=== PATIENT | female | born 1975 | race African-American/Black ===

== ENCOUNTER → 2021-08-27 11:22 | Outpatient (BNVA) | payer MEDICAID, SELFPAY | PROVIDERS: PCP Internal Medicine; Referring Provider Internal Medicine; Visit Provider Surgery | DX: D17.21 Benign lipomatous neoplasm of skin and subcutaneous tissue of right arm (principal) | CPT/HCPCS: 99202 ==

== ENCOUNTER 2021-11-02 07:39 | Day surgery (SDC) | payer MEDICAID, SELFPAY ==
[2021-10-26 13:47] VITALS: BMI 31.3
[2021-11-02] VITALS (8 sets, daily range): BP systolic 102–134; BP diastolic 51–70; PULSE 58–82; RESP 16–18; TEMP 36.1–36.6; O2SAT 99–100
[2021-11-02 08:00] LABS: UPreg QC Valid YES; Urine Pregnancy NEGATIVE (NEGATIVE)
--- NOTE | 2021-11-02 08:01 | MHC.SHP ---
Pre-Procedural Eval Section A Date of Service: 11/02/21 Section B Chief Complaint: Lipoma of right axilla Details of Present Illness: Has had axillary mass for 7 months now with increasing size and discomfort Relevant Family History (Specify if Yes): No Relevant Social History: None Present Medications: see Short Stay Collaborative assessment Medical History: Significant History ( asthma) History of Previous Operations: No relevant previous surgery Allergies: Allergies Allergy/AdvReac Type Severity Reaction Status Date / Time No Known Allergies Allergy Verified 10/26/21 13:46 Review of Systems Sugical H&P ROS: Negative: Constitution, Cardiovascular, Respiratory, Neurological, Psychiatric, Hem-Onc, Allergic/Immunologic, Gastrointestinal, Genitourinary, Musculoskeletal, Integumentary, Endocrine and Eyes/Ears/Nose/Throat Exam Surgical H&P Exam: Normal: HEENT, Normal: Heart, Normal: Lungs, Normal: Extremities, Normal: Abdomen, Normal: Skin and Normal: Neurological Exam Comment: soft this mass in the right axilla about 4 cm in size Plan Diagnosis/Plan: Unchanged I have reviewed the history and physical and performed a pertinent physical examination on my patient. No changes have occurred unless specified.
--- NOTE | 2021-11-02 08:59 | HO.ANESPROP2 ---
[facility] Active Problems Active Problems: All Active Problems (Updated 11/02/21 @ 07:45 by Miriam Nielsen, RN) Lipoma of right axilla (Acute) Asthma (Acute) Past Medical History Medical History (Updated 11/02/21 @ 07:45 by Miriam Nielsen RN) Asthma Hx of sinusitis Lipoma of right axilla Family History Family history of problems with anesthesia: No Surgical History Surgical History H/O section History of removal of ovarian cyst History of Problems with Anesthesia: No Social History Social History Are you a primary inspector health care facilities to a significant other at home: No Do you presently have visiting nurse or other home services: No Are you DNR?: No Advance Directives: No Advance Directives Information Provided: No Advance Directives on File: No Recently lost weight without trying: No Eating poorly because of decreased appetite: No Nutrition Risks: No Nutritional Risk Meds Allergies Allergy/AdvReac Type Severity Reaction Status Date / Time No Known Allergies Allergy Verified 10/26/21 13:46 Home Medications Medication Instructions Recorded Confirmed Last Taken Type norethindrone 1 mg-ethinyl 1 tab DAILY 10/26/21 10/26/21 Unknown History estradiol 35 mcg tablet (Alyacen) Exam Exam Date and Time: November 02, 2021 0859 Height,Weight and Vital Signs: Height 5 ft 3 in Weight 80.286 kg Last Vital Signs Temp 97.3 F 11/02/21 07:59 Pulse 73 11/02/21 07:59 Resp 16 11/02/21 07:59 BP 134/70 11/02/21 07:59 Pulse Ox 99 11/02/21 07:59 Pertinent Lab Results Pertinent Lab Results: Laboratory Tests 11/02/21 07:50 Urine Test NEGATIVE Airway Mallampati Class: II TM Dist: >3cm Neck ROM: Full Assessment and Plan Assessment Anesthesia Assessment: Anesthesia Plan Discussed and Chart Reviewed Final Anesthetic Review Family History of Problems with Anesthesia: No History of Problems with Anesthesia: No NPO: Yes ASA Class: II Final Preanesthetic Review: No Changes in Pt Med Stat, Meds/Allgs Chart Reviewed, Consent Obtained/Reviewed and Anes Risks/Benef Reviewed Patient Risk: Low Procedure Risk: Low Anesthetic Plan Anesthetic Plan: GA Disposition: Standard PACU
[2021-11-02] MEDS: Lactated Ringers 1,000 ML 100 ML IVCONT (09:50)
--- NOTE | 2021-11-02 10:45 | W.PM.OPN ---
Operative Note Operative Note Date of Service: 11/02/21 Narrative: Preop diagnosis: Lipoma right axilla Postop diagnosis: The same Procedure: Excision of lipoma, right axilla under anesthesia Surgeon: Geovany Chaney MD The patient is a 46 year old female who was sent to the office because of a mass on the right axilla. She said that this been increasing in size and had been uncomfortable. This appeared to be a soft lipomatous mass, although with vague margins. She understood the technique of excision under anesthesia. She was aware of the risks, benefits, and alternatives. She was brought the operating room placed supine under general anesthesia via laryngeal mask airway with the right arm that exposed the right axilla. This area was prepped and draped. lidocaine 1% was used for local anesthesia. I made an incision on the skin overlying this mass using blade 15. This was carried down with electrocautery through the full-thickness of skin and part of subcutaneous fat until I realize what appeared to be lipomatous tissue. I sharply dissected this with electrocautery. The margins were not well defined in the planes were not clearly seen. I removed this area of what seemed to be lipomatous mass from the axilla and this measured about 4 cm x 3 cm in dimension. I irrigated the area of excision. I cauterized oozing areas. I observed for hemostasis. Once hemostasis was ensured, I reapposed the deep subcutaneous tissue with Dexon 3-0 interrupted sutures. skin closure was achieved with multiple nylon 3-0 interrupted sutures. Dressings were applied. I infiltrated the area with Marcaine 0.5% for postop analgesia.The procedure was completed. The patient tolerated procedure well. There were no complications noted. Initial and final counts of sponges and instruments were correct. Estimated blood loss was about 15 cc. The patient was extubated and transferred to the recovery room with stable vital signs.
[2021-11-02] MEDS: oxyCODONE HCl Immed Release 5 MG TABLET PO (11:06)
== END 2021-11-02 12:30 | disposition home or self-care (01) ==
PROVIDERS: Anesthesiology; PCP Internal Medicine; Visit Provider Surgery
PROC: (CPT 21552; principal; 2021-11-02 09:40)
DX: D17.21 Benign lipomatous neoplasm of skin and subcutaneous tissue of right arm (principal); J45.909 Unspecified asthma, uncomplicated
CPT/HCPCS: 21552; 81025; 88304; J0690; J1100; J2250; J2370; J2405; J2765; J3010

== ENCOUNTER → 2021-11-15 10:41 | Outpatient (BNVA) | payer MEDICAID, SELFPAY | PROVIDERS: PCP Internal Medicine; Referring Provider Internal Medicine; Visit Provider Surgery | DX: Z48.817 Encounter for surgical aftercare following surgery on the skin and subcutaneous tissue (principal); Z87.2 Personal history of diseases of the skin and subcutaneous tissue | CPT/HCPCS: 99212 ==

== ENCOUNTER 2023-12-29 19:45 | Outpatient (REF) | payer MEDICAID, SELFPAY ==
[2023-12-31 20:28] LABS: C. trachomatis RNA TMA NOT DETECTED (NOT DETECTED); Candida glabrata RNA NOT DETECTED (NOT DETECTED); Candida species RNA NOT DETECTED (NOT DETECTED); N. gonorrhoeae RNA TMA NOT DETECTED (NOT DETECTED); Trichomonas vaginalis RNA NOT DETECTED (NOT DETECTED)
== END 2023-12-29 19:46 | disposition home or self-care (01) ==
LOC: HO.HHCLNP 19:45
PROVIDERS: Visit Provider Emergency Medicine
DX: R39.9 Unspecified symptoms and signs involving the genitourinary system (principal)
CPT/HCPCS: 36415; 81513; 87086; 87481; 87491; 87591; 87661

== ENCOUNTER 2024-02-02 09:13 | Outpatient (REF) | payer MEDICAID, SELFPAY ==
[2024-02-02 14:53] LABS: MANUAL DIFF FLAG NO
[2024-02-02 14:59] LABS: Basophils Percent Auto 0.5 % (0-2); Eosinophils Absolute Auto 0.2 X10*3/uL (0.0-0.4); Eosinophils Percent Auto 3.6 % (0-4); Hematocrit 36.7 % (37.0-47.0); Hemoglobin 11.5 g/dl (12.0-16.0); Imm Gran Abs Auto 0.01 X10*3/uL (0.00-0.03); Imm Gran Pct Auto 0.2 % (0.0-0.4); Lymphocytes Absolute Auto 1.9 X10*3/uL (1.2-4.9); Lymphocytes Percent Auto 31.8 % (20-40); Mean Corpuscular HGB Conc 31.3 g/dl (31.0-35.0); Mean Corpuscular Hemoglobin 26.4 pg (27.0-33.0); Mean Corpuscular Volume 84.4 fL (80.0-98.0); Mean Platelet Volume 10.5 fL (9.4-12.3); Monocytes Absolute Auto 0.4 X10*3/uL (0.1-1.2); Monocytes Percent Auto 6.7 % (2-11); Neutrophils Absolute Auto 3.5 x10*3/uL (2.0-8.3); Neutrophils Percent Auto 57.2 % (45-73); Platelet Count 342 X10*3/uL (160-400); Red Blood Count 4.35 X10*6/uL (4.20-5.50); Red Cell Distribution Width 14.6 % (11.0-16.0); White Blood Count 6.1 X10*3/uL (4.8-10.8)
[2024-02-02 15:16] LABS: Alanine Aminotransferase 15 U/L (0-31); Albumin Level 4.3 g/dL (3.5-5.0); Alkaline Phosphatase 98 U/L (39-117); Anion Gap 12 (12-20); Aspartate Amino Transferase 20 U/L (5-31); Bilirubin Total 0.6 mg/dL (0.0-1.0); Blood Urea Nitrogen 13 mg/dL (9-16); Calcium 9.5 mg/dL (8.4-10.2); Carbon Dioxide 25 mmol/L (22-29); Chloride 106 mmol/L (96-108); Cholesterol 199 mg/dL (<200); Estimated Glomerular Filt Rate > 60; Glucose Random 82 mg/dL (60-115); HDL Cholesterol 49 mg/dL (>40); LDL Cholesterol Calculated 127 mg/dL (<100); Potassium 3.9 mmol/L (3.3-5.1); Sodium 139 mmol/L (135-145); Triglycerides 118 mg/dL (<150)
[2024-02-02 15:35] LABS: TSH reflex Free T4 1.52 uIU/mL (0.32-4.0)
[2024-02-03 05:33] LABS: HIV AB/AG Nonreactive (Nonreactive); HIV Num 1 0.05 S/CO (0.00-0.99)
[2024-02-03 12:44] LABS: HCV Log PCR <1.18 NOT DETECTED Log IU/mL (NOT DETECTED); HepC Viral Load <15 NOT DETECTED IU/mL (NOT DETECTED)
== END 2024-02-02 09:14 | disposition home or self-care (01) ==
LOC: HO.CHCLDS 09:13
PROVIDERS: Visit Provider Internal Medicine
DX: Z00.00 Encounter for general adult medical examination without abnormal findings (principal); Z11.4 Encounter for screening for human immunodeficiency virus [HIV]; F41.9 Anxiety disorder, unspecified; E66.9 Obesity, unspecified
CPT/HCPCS: 36415; 80053; 80061; 84443; 85025; 87389; 87522

== ENCOUNTER 2024-03-15 11:46 | Outpatient (REF) | payer MEDICAID, SELFPAY ==
[2024-03-15 14:26] LABS: MANUAL DIFF FLAG NO
[2024-03-15 14:36] LABS: Basophils Percent Auto 0.6 % (0-2); Eosinophils Absolute Auto 0.1 X10*3/uL (0.0-0.4); Eosinophils Percent Auto 2.6 % (0-4); Hematocrit 34.5 % (37.0-47.0); Hemoglobin 11.1 g/dl (12.0-16.0); Imm Gran Abs Auto 0.01 X10*3/uL (0.00-0.03); Imm Gran Pct Auto 0.2 % (0.0-0.4); Lymphocytes Absolute Auto 1.2 X10*3/uL (1.2-4.9); Mean Corpuscular HGB Conc 32.2 g/dl (31.0-35.0); Mean Corpuscular Hemoglobin 26.7 pg (27.0-33.0); Mean Corpuscular Volume 83.1 fL (80.0-98.0); Mean Platelet Volume 10.8 fL (9.4-12.3); Monocytes Absolute Auto 0.3 X10*3/uL (0.1-1.2); Monocytes Percent Auto 5.8 % (2-11); Neutrophils Absolute Auto 3.6 x10*3/uL (2.0-8.3); Neutrophils Percent Auto 67.8 % (45-73); Platelet Count 318 X10*3/uL (160-400); Red Blood Count 4.15 X10*6/uL (4.20-5.50); Red Cell Distribution Width 14.3 % (11.0-16.0); White Blood Count 5.4 X10*3/uL (4.8-10.8)
== END 2024-03-15 11:47 | disposition home or self-care (01) ==
LOC: HO.CHCLDS 11:46
PROVIDERS: Visit Provider Internal Medicine
DX: D50.9 Iron deficiency anemia, unspecified (principal)
CPT/HCPCS: 36415; 85025

== ENCOUNTER → 2024-04-06 08:03 | Outpatient (BNV) | payer MEDICAID, SELFPAY | PROVIDERS: PCP Internal Medicine; Referring Provider Internal Medicine; Visit Provider Internal Medicine Medical Oncology | DX: D50.9 Iron deficiency anemia, unspecified (principal) | CPT/HCPCS: 99204 ==

== ENCOUNTER 2024-06-18 08:33 | Outpatient (REF) | payer MEDICAID, SELFPAY ==
[2024-06-19 03:01] LABS: CT PCR NOT DETECTED (Not Detect.); NG PCR NOT DETECTED (Not Detect.)
[2024-06-19 14:40] LABS: Bacterial Vaginosis PCR POSITIVE (Negative); Candida Group PCR NOT DETECTED (Not Detect); Candida glab krusei PCR NOT DETECTED (Not Detect); Trichomonas vaginalis PCR NOT DETECTED (Not Detect)
[2024-06-23 08:48] LABS: HPV mRNA E6/E7 Not Detected (Not Detected)
== END 2024-06-18 08:34 | disposition home or self-care (01) ==
LOC: HO.LNP 08:33
PROVIDERS: PCP Internal Medicine; Visit Provider Advanced Practice Midwife
DX: Z01.419 Encounter for gynecological examination (general) (routine) without abnormal findings (principal); N92.0 Excessive and frequent menstruation with regular cycle
CPT/HCPCS: 0352U; 81025; 87491; 87591; 87624; 88175; 99386

== ENCOUNTER 2024-06-18 08:33 | Outpatient (AMB) | payer MEDICAID, SELFPAY ==
[2024-06-18 08:37] VITALS: BP 110/70; BMI 33.8
--- NOTE | 2024-06-18 08:37 | A.OFFVIS_ITS ---
Vital Signs 06/18/24 08:37 Height 5 ft 2 in Weight 185 lb BMI 33.8 BP 110/70 Intake Visit Reasons: heavy periods/Referral Machinery Cleaner Required: Yes Machinery Cleaner Language: Combatant Swimmer Services: Machinery Cleaner Present (in person) Machinery Cleaner Name: Bertha Srinivasa ROLDAN Information Interpreted: non-clinical & clinical Refuse Collector Supervisor: Refuse Collector Supervisor Present (Bertha ROLDAN) Accompanied by: Self / Same As Patient Allergies No Known Allergies Allergy (Verified 06/18/24 08:37) Is last menstrual period known: Yes Last menstrual period: 06/14/24 HPI Comments Details: Patient is referred here today for for heavy menstrual bleeding. Additionally her new patient annual exam will be completed today. History of regular cycles lasting 5 days heavy for 3. Seen by Hematology for anemia. Labs 04/06/2024-H&H is 11.8/37.0, TSH 1.52 on 02/02/2024. She tries to eat healthy and stays active with exercise. Currently is sexually active. She denies vaginal itching and irritation. STI screening offered; she accepts, declines blood work reports it was up-to-date recently with primary care. Denies family history of breast, ovarian or colon cancer. Last pap smear several years ago at [facility], negative, no records available today. Mammogram: Not up-to-date. [facility] Medical History (Updated 06/18/24 @ 09:11 by Elissa De La Rosa CNM) History of uterine fibroid Hx of sinusitis Lipoma of right axilla Asthma Surgical History (Updated 06/18/24 @ 08:52 by Elissa De La Rosa CNM) History of myomectomy History of removal of ovarian cyst H/O section Family History (Updated 06/18/24 @ 09:07 by Bertha Bernabe [facility]) Mother HTN (hypertension) Father Diabetes Heart attack Social History Household Members: Family and Children Are you a primary health care technician to a significant other at home: No Do you presently have visiting nurse or other home services: No Patient Tobacco Use Status: Never used Tobacco service: No Current occupational status: unemployed Female Reproductive History Menstrual Duration of menses: 3-5 days Date of last menstrual period: 06/14/24 control method: pills Total pregnancies: 3 Full term: 1 Number of Living Children: 1 Review of Systems Const All systems reviewed & are unremarkable except as noted in HPI and below Reports as per HPI Eyes Reports no additional complaints ENT Reports no additional complaints Card Reports no additional complaints Resp Reports no additional complaints GI Reports as per HPI and Reports no additional complaints Reports as per HPI Musc Reports no additional complaints Skin/Breast Reports as per HPI Neuro Reports no additional complaints Psych Reports no additional complaints Endo Reports no additional complaints Diaz/Lymph Reports no additional complaints Aller/Immun Reports no additional complaints Physical Exam Vital Signs: Last Vital Signs BP 110/70 06/18/24 08:37 BMI result Body Mass Index 33.8 Const General: cooperative, healthy appearing, no acute distress, well developed and alert Orientation/consciousness: patient oriented x3 HEENT Head: Yes normal to inspection Eyes General: appearance normal, both eyes and all related structures Neck Neck: Yes normal visual inspection Thyroid: Thyroid normal Chest Other: Pendulous Chest palpation & inspection: normal inspection of the chest and other (no puckering, dimpling, peau de orange, retraction, discharge, masses) Breast/axilla inspection: normal inspection of the breasts Breast/axilla palpation: normal palpation of the breasts Resp Effort & Inspection: normal respiratory effort GI Inspection: Yes normal to inspection Palpation (GI): Soft to palpation Rectal Exam - Female: deferred General: Yes bladder normal to palpation External Female Exam: normal external appearance and normal appearance of the urethra Speculum Exam - Vagina: normal appearance of the vagina, normal palpation, normal vaginal discharge and vaginal bleeding (Small amount of dark red blood) Speculum Exam - Cervix: normal appearance of the cervix and normal palpation Bimanual exam- vagina & uterus: normal bimanual exam, normal palpation, uterine size normal, bladder normal to palpation, normal palpation and non-tender Bimanual Exam- Adnexa, other: no masses OB/external & speculum: vaginal bleeding (Small amount of dark red blood) Skin General skin exam: no rashes or lesions noted Rashes: no rashes Neuro General: patient oriented x3 Cognition (Neuro): normal cognition Extrem General: Yes normal to inspection Psych Attitude: cooperative Thought process: Normal thought process present Results AMB Test Urine AMB Test Urine Negative Last Edit by YULI Blair on 06/18/24 08:45 Results Reviewed Results Reviewed: Laboratory Last Values [facility] Clinic Negative 06/18/24 08:44 Assessment & Plan Assessment & Plan (1) Abnormal uterine bleeding (AUB): Code(s): N93.9 - Abnormal uterine and vaginal bleeding, unspecified Category: Medical (2) Encounter for well woman exam with routine gynecological exam: Code(s): Z01.419 - Encounter for gynecological examination (general) (routine) without abnormal findings Category: Medical Plan Discussed: Current recommendations for pap smears per ASCCP guidelines. Breast awareness and periodic breast exams. Maintain a healthy lifestyle including a well balanced diet and routine exercise. Workup for heavy menstrual bleeding-pelvic ultrasound, Pap today, GC chlamydia and BV panel. Plan follow up in person for ultrasound results consider endometrial biopsy at next visit. Prep procedure planning reviewed advised ibuprofen with food and fluids 1 hour before the visit. Mammogram yearly, order placed. Sign a release of records to [facility] to include pathology, operative note, assistant tennis professional provider notes and other pertinent assistant tennis professional information. Patient verbalizes understanding and agrees to the plan of care. She was given opportunity to ask questions and all questions were answered to the best of my ability. RTO in one year for annual assistant tennis professional examination. This note is constructed using voice recognition software. While every effort has been made to ensure accuracy, director of hemophilia errors may have been included. Orders: Orders AMB HCG Urine Test Today Z32.02 - Encounter for test, result negative MM tomosynthesis screening BI Today Z12.31 - Encounter for screening mammogram for malignant neoplasm of breast US pelvic and transvaginal Today N93.9 - Abnormal uterine and vaginal bleeding, unspecified CT NG by PCR Today N93.9 - Abnormal uterine and vaginal bleeding, unspecified, Z01.419 - Encounter for gynecological examination (general) (routine) without abnormal findings Bacterial Vaginosis Panel Today N93.9 - Abnormal uterine and vaginal bleeding, unspecified, Z01.419 - Encounter for gynecological examination (general) (routine) without abnormal findings PAP + HPV E6/E7 rfx 18/45 Today N93.9 - Abnormal uterine and vaginal bleeding, unspecified, Z01.419 - Encounter for gynecological examination (general) (routine) without abnormal findings Coding Level of Care Code New Pt Prev Care 40-64y(97556) Diagnoses Abnormal uterine bleeding (AUB) N93.9 Encounter for well woman exam with routine gynecological exam Z01.419
== END 2024-06-18 09:08 | disposition home or self-care (01) ==
LOC: HO.HWS 08:33
PROVIDERS: PCP Internal Medicine; Visit Provider Advanced Practice Midwife
DX: N93.9 Abnormal uterine and vaginal bleeding, unspecified (principal); Z01.419 Encounter for gynecological examination (general) (routine) without abnormal findings; Z32.02 Encounter for pregnancy test, result negative
CPT/HCPCS: 99386

== ENCOUNTER 2024-06-24 13:51 | Outpatient (REF) | payer MEDICAID, SELFPAY | END 2024-06-24 13:52 | disposition home or self-care (01) | LOC: HO.US 13:51 | PROVIDERS: PCP Internal Medicine; Visit Provider Advanced Practice Midwife | DX: N93.9 Abnormal uterine and vaginal bleeding, unspecified (principal) | CPT/HCPCS: 76830; 76856 ==

== ENCOUNTER 2024-11-25 10:10 | Outpatient (AMB) | payer MEDICAID, SELFPAY ==
--- NOTE | 2024-11-25 10:13 | A.OFFVIS_ITS ---
Vital Signs 11/25/24 10:19 BP 112/70 Intake Visit Reasons: ultrasound follow up Insulation And Flooring Assembler Required: Yes Insulation And Flooring Assembler Language: Supervisor Carding Name: Candi [id number] Information Interpreted: non-clinical & clinical Leveler: Leveler Present Allergies No Known Allergies Allergy (Verified 11/25/24 10:14) Is last menstrual period known: Yes Last menstrual period: 10/29/24 HPI Comments Details: Patient is here today for a follow up pelvic ultrasound. History of myomectomy at [facility] at age 45. She reports her menses have been reduced since her last visit now heavy 1.5 days out of 3d. Medical records from [facility] requested in June have not arrived. [facility] Medical History Fibroid History of uterine fibroid Hx of sinusitis Lipoma of right axilla Asthma Surgical History History of myomectomy History of removal of ovarian cyst H/O section Family History Mother HTN (hypertension) Father Diabetes Heart attack Social History Household Members: Family and Children Are you a primary administrator health care facility to a significant other at home: No Do you presently have visiting nurse or other home services: No Patient Tobacco Use Status: Never used Tobacco service: No Current occupational status: unemployed Female Reproductive History Menstrual Date of last menstrual period: 10/29/24 Review of Systems Const All systems reviewed & are unremarkable except as noted in HPI and below Endo Reports no additional complaints Physical Exam Vital Signs: Last Vital Signs BP 112/70 11/25/24 10:19 Const General: cooperative, healthy appearing and no acute distress Psych Appearance: well kempt Attitude: cooperative Thought process: Normal thought process present Results Reviewed Results Reviewed: [address] [address] Ultrasound Report Signed Patient: Haley Mckeon MR#: [id number] : 1975 Acct:[id number] Age/Sex: 48 / F ADM Date: 06/24/24 Loc: HO.US Attending Dr: Elissa De La Rosa CNM Ordering Physician: Elissa De La Rosa CNM Date of Service: 06/24/24 Procedure(s): US pelvic and transvaginal Accession Number(s): [id number] cc: Jason Salas MD; Elissa De La Rosa CNM~ EXAMINATION: US PELVIS CLINICAL INFORMATION: Abnormal uterine and vaginal bleeding COMPARISON: None available. TECHNIQUE: Ultrasound of the pelvis is performed using both transabdominal and transvaginal transducers along with Doppler. Transvaginal imaging is performed due to inadequate visualization transabdominally. FINDINGS: Uterus: The uterus is anteverted is enlarged with multiple fibroids measuring 10.0 x 6.4 x 6.5 cm. Multiple fibroids are seen with the 4 largest ranging in size from 1.7 to 3.9 cm. At the time of the prior study, more discrete fibroids were seen but smaller in size ranging from under a centimeter up to 1.9 cm. The double wall endometrial thickness is 0.9 mm. Nabothian cysts are present in the cervix. Adnexa: The right ovary was not seen. The left ovary measures 4.1 x 2.2 x 2.9 cm for a volume of 13.7 cc and contains follicular cysts. No free pelvic fluid US/US pelvic and transvaginal IMPRESSION: Enlarged uterus with multiple fibroids increasing in size. Electronically signed by: Carlitos Blanchard MD 08/22/2024 11:00 PM [facility] Dictated By: Carlitos Blanchard MD Signed By: <Electronically signed by Carlitos Blanchard MD in OV> 08/22/24 2300 DD/ 1413 TD/TT: 06/24/24 1433 Reduction Plant Supervisor: SS Assessment & Plan Assessment & Plan (1) Fibroid: Code(s): D21.9 - Benign neoplasm of connective and other soft tissue, unspecified Category: Medical Plan: (2) Encounter to discuss test results: Code(s): Z71.2 - Person consulting for explanation of examination or test findings Plan: See ultrasound report. Plan Discussed ultrasound findings. Counseled re: Leiomyoma: common pelvic neoplasm. Differential diagnosis-may include but not limited to- leiomyosarcoma which is a rare uterine sarcoma 3- 7/100,000, difficult to distinguish from fibroids on ultrasound from uterine sarcoma's. Unlikely any single test will have a highly positive predictive value. Hysterectomy is not recommended for sole purpose of excluding malignant neoplasm. Consult for surgical exploration, medical treatment, other treatments, verses expectant management, pros and cons, risks and benefits. Expectant management follow up in 6 months, then yearly for stability. Patient prefers to proceed with expectant management. Report any AUB, pelvic pressure, bloating, or pain. Referral to MD if indicated for level of care if indicated. Follow up pending ultrasound results. Schedule annual exam. Menopause verses perimenopause. Menopause is definitive of 1 year of no menses or 12 months in succession. Report any abnormal uterine bleeding in example prolonged episodes, or short intervals less than 24 days. 2nd Release for medical records requested today. Orders: Orders US pelvic and transvaginal 12/06/24 D21.9 - Benign neoplasm of connective and other soft tissue, unspecified Coding Level of Care Code Est Pt Level 3 (22821) Diagnoses Fibroid D21.9 Encounter to discuss test results Z71.2
[2024-11-25 10:19] VITALS: BP 112/70
== END 2024-11-25 10:47 | disposition home or self-care (01) ==
LOC: HO.HWS 10:11
PROVIDERS: PCP Internal Medicine; Visit Provider Advanced Practice Midwife
DX: D21.9 Benign neoplasm of connective and other soft tissue, unspecified (principal); Z71.2 Person consulting for explanation of examination or test findings
CPT/HCPCS: 99213

== ENCOUNTER → 2024-11-25 10:10 | Outpatient (BNVA) | payer MEDICAID, SELFPAY | PROVIDERS: PCP Internal Medicine; Visit Provider Advanced Practice Midwife | DX: Z71.2 Person consulting for explanation of examination or test findings (principal); D21.9 Benign neoplasm of connective and other soft tissue, unspecified | CPT/HCPCS: 99212 ==

== ENCOUNTER 2024-12-17 13:20 | Outpatient (REF) | payer MEDICAID, SELFPAY ==
--- NOTE | ~2024-12-17 | US_ITS ---
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 TECHNIQUE: Transabdominal and endovaginal real-time 2D good-scale ultrasound was performed. FINDINGS: Uterus: The uterus is enlarged, measuring 12.1 x 7.0 x 7.3 cm. Myometrium has a normal echotexture. Multiple fibroids are noted including a left uterine body fibroid measuring 3.7 x 2.8 x 2.6 cm (previously 3.1 x 3.9 x 2.7 cm), a right anterior fibroid measuring 1.5 x 1.3 x 1.2 cm (previously 1.4 x 1.7 x 1.3 cm), a left anterior fibroid measuring 4.5 x 3.0 x 4.8 cm (previously 3.4 x 2.5 x 3.9 cm), a right fundal fibroid measuring 4.6 x 4.2 x 4.0 cm (previously 2.6 x 2.3 x 2.5 cm), and a superior fibroid measuring 4.9 x 3.7 x 3.6 cm which was not seen previously. Endometrium: The endometrial stripe measures 11 mm in thickness. There are nabothian cysts in the cervix. Right ovary: The right ovary measures 3.6 x 1.8 x 2.9 cm. The right ovary is normal in size and echotexture. Left ovary: The left ovary measures 3.7 x 1.4 x 2.0 cm. The left ovary is normal in size and echotexture. Pelvic fluid: none. US/US pelvic and transvaginal IMPRESSION: Fibroid uterus as described. Electronically signed by: Hugo Worrell MD 12/17/2024 02:40 PM EDT
--- OUTSIDE RECORDS SUMMARY | 2024-12-17 13:47 | XMS_ITS | Encounter Summary ---
Author Organization [employer] Address [address] [place] [address] Care Team Providers Care Bar Steward Name Role Phone Jason Salas MD Primary Care Provider [phone] Reason for Referral * Consultation (Routine) - Closed Specialty Diagnoses / Procedures Referred By Contfarzana oropeza Referred To Contact Hematology and Oncology Diagnoses Microcytic anemia Jason Salas MD [address] [place] [address] Phone: tel: fax: Ed Hugo MD [address] [place] [address] Phone: tel: fax: Referral ID Status Reason Start Date Expiration Date V isits Requested Visits Authorized [id number] Closed Specialty Services Required 03/15/2024 03/15/2025 1 1 Encounter Details Date Type Department Care Team (Late st Contact Info) Description 03/15/2024 Orders Only [facility] [address] [place], [place] [phone] Jason Salas MD [address], [place] [phone] Microcytic anemia (Primary Dx) Social History Tobacco Use Types Packs/Day Years Used Date Smoking Tobacco: Never Passive Smoke Exposure: Never Smokeless Tobacco: Never Depression Answer Date Recorded Patient Health Questionnaire-9 Score 7 03/15/2024 Patient Health Questionnaire-9 Score 7 03/15/2024 Last PHQ-9: Questionnaire Data Not on file 0 03/15/2024 Housing Stability Answer Date Recorded What is your housing situation today? Not on liberty e 07/07/[address] you li ve. Do you have problems with any of the following? None of the above 07/07/2023 Food Insecurity Answer Date Recorded Within the past 12 months, y ou worried that your food would run out before you got money to buy more: Never True 07/07/2023 Within the past 12 months,th e food you bought just didn't last and you didn't have enough money to get more: Never True 01/2023 Transportation Answer Date Recorded In the past 12 months, has l ack of transportation kept you from medical appts, meetings, work or from getting things needed for daily living? No 07/07/2023 Utilities Answer Date Recorded In the past 12 months, has t he electric, gas, oil or water company threatened to shut off services in your home? No 07/07/2023 Depression Answer Date Recorded Patient Health Questionnaire-2 Score 0 03/15/2024 Comments Unknown Sex and Gender Information Value Date Recorded Sex Assigned at Female 07/01/2022 10:34 AM EDT Legal Sex Female 10:34 AM EDT Gender Identity Female 01/16/2024 9:12 AM EDT Sexual Orientation Straight 01/16/2024 9: 12 AM EDT documented as of this encounter Plan of Treatment Upcoming Encounters Date Type Department Care Team (Late st Contact Info) Description 01/19/2025 10:00 AM EDT Office Visit [facility] [address] [place] [address] Jason Salas MD [address] [place] [address] Scheduled Referrals Name Type Priority Associated Diagnoses Order Schedule Referral to Hematology / Oncology Outpatient Referral Routine Microcytic anemia Expected: 03/15/2024 (Approximate), Expires: 03/15/2025 documented as of this encounter Visit Diagnoses Diagnosis Microcytic anemia- Primary Unspecified iron deficiency anemia documented in this encounter Additional Health Concerns Assessment Noted Time PHQ-9 Depression Total Score: 7 03/15/20 24 3:22 PM EDT documented as of this encounter Care Teams Bar Steward Relationship Specialty Start Date End Date Jason Salas MD [address] [place] [id number] PCP - General Internal Medicine 02/17/18 documented as of this encounter
--- OUTSIDE RECORDS SUMMARY | 2024-12-17 13:47 | XMS_ITS | Encounter Summary ---
Author Organization [employer] Address [address] [facility] [address] [place] [address] Care Team Providers Care Field Education Director Name Role Phone Jason Salas MD Primary Care Provider [phone] Encounter Details Date Type Department Care Team ([facility] st Contact Info) Description 09/07/2024 Orders Only [facility] MED & PEDS [address] [place], [place] [phone] Jason Salas MD [address] [place] [address] Class 1 obesity due to excess calories without serious comorbidity with body mass index (BMI) of 33.0 to 33.9 in adult (Primary Dx) Social History Tobacco Use Types Packs/Day Years Used Date Smoking Tobacco: Never Passive Smoke Exposure: Never Smokeless Tobacco: Never Depression Answer Date Recorded Patient Health Questionnaire-9 Score 4 06/28/2024 Patient Health Questionnaire-9 Score 4 06/28/2024 Last PHQ-9: Questionnaire Data Not on file 1 Housing Stability Answer Date Recorded What is your housing situation today? I have nelson le 06/07/[address] you li ve. Do you have problems with any of the following? None of the above 06/07/2024 Food Insecurity Answer Date Recorded Within the past 12 months, y ou worried that your food would run out before you got money to buy more: Never True 06/07/2024 Within the past 12 months,th e food you bought just didn't last and you didn't have enough money to get more: Never True 03/2024 Transportation Answer Date Recorded In the past 12 months, has l ack of transportation kept you from medical appts, meetings, work or from getting things needed for daily living? No 06/07/2024 Utilities Answer Date Recorded In the past 12 months, has t he electric, gas, oil or water company threatened to shut off services in your home? No 06/07/2024 Depression Answer Date Recorded Patient Health Questionnaire-2 Score 0 06/28/2024 Internet Access Answer Date Recorded Internet Access Q1 Yes 06/07/2024 Internet Access Q2 Not on file 06/07/2024 Comments Unknown Sex and Gender Information Value Date Recorded Sex Assigned at Female 07/01/2022 10:34 AM EDT Legal Sex Female 10:34 AM EDT Gender Identity Female 01/16/2024 9:12 AM EDT Sexual Orientation Straight 01/16/2024 9: 12 AM EDT documented as of this encounter Plan of Treatment Upcoming Encounters Date Type Department Care Team ([facility] st Contact Info) Description 01/19/2025 10:00 AM EDT Office Visit [facility] MED [facility] PEDS [address] [place] [address] Jason Salas MD [address] [place] [address] documented as of this encounter Visit Diagnoses Diagnosis Class 1 obesity due to excess calories without serious comorbidity with body mass index (BMI) of 33.0 to 33.9 in adult- Primary documented in this encounter Additional Health Concerns Assessment Noted Time PHQ-9 Depression Total Score: 4 06/28/20 24 2:46 PM EDT documented as of this encounter Care Teams Field Education Director Relationship Specialty Start Date End Date Jason Salas MD [address] [place] [address] PCP - General Internal Medicine 02/17/18 documented as of this encounter
--- OUTSIDE RECORDS SUMMARY | 2024-12-17 13:47 | XMS_ITS | Clinical Summary ---
Author Organization [employer] Address [address] [facility] [address] [place] [address] Care Team Providers Care Vibratory Pile Driver Name Role Phone Jason Salas MD Primary Care Provider [phone] Allergies No known active allergies Medications * This document contains information received from the source organization and may not represent a complete record from that organization. ferrous sulfate (Fe Tabs) 325 (65 Fe) MG EC tabletIndication s:Microcytic anemia Take 1 tablet (325 mg) by mouth with breakfast, with lunch, and with evening meal. Do not crush, chew, or split. 90 tablet 02/02/20 24 025 Active busPIRone (Buspar) 10 MG tabletIndication s:Anxiety Take 1 tablet (10 mg) by mouth 2 times daily. 60 tablet 11 02/03/20 24 025 Active Semaglutide-Weig ht Management (Wegovy) 0.5 MG/0.5ML solution auto-injectorInd ications:Class 1 obesity due to excess calories without serious comorbidity with body mass index (BMI) of 33.0 to 33.9 in adult INJECT ONE PEN (=0.5 MG) SUBCUTANEOUSLY ONCE A WEEK 2 mL 07/14/20 24 Active fluticasone (Flonase) 50 MCG/ACT nasal sprayIndications :Nasal sinus congestion INHALE 1 - 2 SPRAYS IN EACH NOSTRIL ONCE DAILY 48 g 08/11/20 24 Active Semaglutide-Weig ht Management (Wegovy) 1 MG/0.5ML solution auto-injector INJECT ONE PEN (=1 MG) SUBCUTANEOUSLY ONCE A WEEK 2 mL 08/10/20 24 Active Zepbound 2.5 MG/0.5ML solution auto-injectorInd ications:Class 1 obesity due to excess calories without serious comorbidity with body mass index (BMI) of 33.0 to 33.9 in adult INJECT 0.5ML'S (2.5MG'S) SUBCUTANEOUSLY ONCE PER WEEK 2 mL 1 10/28/19 25 Active albuterol (ProAir HFA) 108 (90 Base) MCG/ACT inhalerIndicatio ns:Mild intermittent asthma without complication Inhale 2 puffs every 6 (six) hours if needed for wheezing. 18 g 1 11/11/19 25 Active Active Problems Problem Noted Date Diagnosed Date Mild depression 03/15/2024 Assessment & Plan (03/15/2024 3:39 PM EDT): PROGRESS NOTE: ID: Haley is a 48 y.o. straight-identified cis-female with No previous hx of MH dx or sx No previous hx of MH services who presents for anxiety and depression. During IBH Consult Haley presenting with changes in sleep sleeping too much, change in appetite or weight overeating, fatigue/loss of energy and excessive worry/anxiety, difficulty controlling worry, restless/keyed up/On edge, easily fatigued, muscle tension, and sleep disturbance sleeping too much; for a period of 6-12 mo, for all symptoms in the context of employment concern, financial struggle, having too much time off. PLAN: New/Additional Services needed PCP management Behavioral Health Integration Plan External OP therapy referral Patient Self Plan Patient to utilize skills provided in intervention , Patient to [facility] to [facility] team as needed, Comply with medication , Patient to engage in OP therapy , and Patient to reach out to HC as needed Mild anxiety 03/15/2024 Mild intermittent asthma 12/29/2023 Acute gastroenteritis 01/20/2023 Assessment & Plan (01/20/2023 4:41 PM EDT): Advised hydration and BRAT diet. RTC PRN if symptoms fail to improve or worsen or are not resolved in a week. Gave Zofran for nausea. BRAT diet handout given to patient. Asthma 05/11/2019 Encounters Date Type Department Care Team Description 11/12/2024 Population Health Risk Score [facility] () Department [address] [phone] Provider, Population Health Generic 11/10/2024 Refill [facility] CHC MED & PEDS [address] [place] [address] Jason Salas MD Mild intermittent asthma without complication 10/28/2024 Refill [facility] CHC MED & PEDS [address] [place] [address] Jason Salas MD Class 1 obesity due to excess calories without serious comorbidity with body mass index (BMI) of 33.0 to 33.9 in adult from Last 3 Months Immunizations Name Administration Dates Next Due Pneumococcal Conjugate PCV 20 01/15/2024 Tdap 01/15/2024 Family History Medical History Relation Name Comments Diabetes type II Father Hypertension Father Diabetes Mother Hypertension Mother Relation Name Status Comments Father Mother Social History Tobacco Use Types Packs/Day Years Used Date Smoking Tobacco: Never Passive Smoke Exposure: Never Smokeless Tobacco: Never Tobacco Cessation:Counseling Given: Not Answered Depression Answer Date Recorded Patient Health Questionnaire-9 [...] Orientation Straight 01/16/2024 9: 12 AM EDT Last Filed Vital Signs Vital Sign Reading Time Taken Comments Blood Pressure 134/80 08/02/2024 3:29 PM EST Pulse 88 08/02/2024 3:29 PM EST Temperature 36.3 ??C (97.3 ??F) 08/02/2024 3:29 PM ES T Respiratory Rate 12 08/02/2024 3:29 PM EST Oxygen Saturation 100% 08/02/2024 3:29 PM EST Inhaled Oxygen Concentration - - Weight 83.6 kg (184 lb 3.2 oz) 08/02/2024 3:29 P M EST Height 161.3 cm (5' 3.5 ) 08/02/2024 3:29 PM EST Body Mass Index 32.12 08/02/2024 3:29 PM EST Plan of Treatment Upcoming Encounters Date Type Department Care Team (Late st Contact Info) Description 01/19/2025 10:00 AM EDT Office Visit [facility] CH[facility] MED & PEDS [address] [place] [address] Jason Salas MD [address] [place] [address] Health Maintenance Due Date Last Done Comments CT Colonography 1976 Colonoscopy 1976 FIT 1976 FOBT 1976 Sigmoidoscopy 1976 Family Planning (PISQ) 1991 Mammogram 2016 Influenza Vaccine (#1) 2025 Postp oned from 05/02/2024 (Patient Refused) SDOH Screening 06/07/2025 06/07/2024 Alcohol/Substance Use Screening 06/16/2025 06/16/2024 COVID-19 Vaccine (2023-2 5 season) 2025 02/23/2021, 01/26/2021 Postponed from 05/02/2024 (Patient Refused) Depression Screening 06/28/2025 06/28/2024, 06/28/2024 Tobacco Screening 08/02/2025 08/02/2024 Zoster Vaccines (1 of 2) 2026 Colorectal Cancer Screening 02/23/2027 FIT DNA/Cologuard 02/23/2027 02/24/2024 Lipid Panel 02/01/2029 02/02/2024 Cervical Cancer Screening 06/18/2029 HPV/Cotest 06/18/2029 06/18/2024, 12/14/2020 Pap Smear 06/18/2029 06/18/2024, 12/14/2020 DTaP/Tdap/Td Vaccines (2 - T d or Tdap) 01/14/2034 01/15/2024 RSV Patients and Patients Aged 60 years or older (1 - 1-dose 75+ series) 2051 Pneumococcal Vaccine: Pediatrics (0 to 5 Years) and At-Risk Patients (6 to 49) Years) Completed 01/15/2024 HIV Screening Completed 02/02/2024 Hepatitis C Screening Completed 02/02/2024 HIB Vaccines Aged Out No longer eligi ble based on patient's age to complete this topic HPV Vaccines Aged Out No longer eligi ble based on patient's age to complete this topic Hepatitis A Vaccines Aged Out No long er eligible based on patient's age to complete this topic Hepatitis B Vaccines Discontinued IPV Vaccines Aged Out No longer eligi ble based on patient's age to complete this topic Meningococcal Vaccine Aged Out No corine jennifer eligible based on patient's age to complete this topic RSV under 20 months Aged Out No longe r eligible based on patient's age to complete this topic Rotavirus Vaccines Aged Out No longer eligible based on patient's age to complete this topic Procedures Procedure Name Priority Date/Time Associated Diagnosis Comments THINPREP IMAGING PAP AND HPV MRNA E6/E7 WITH REFLEX TO HPV 16,18/45 Routine 06/18/2024 8:33 AM EDT LAB COLOGUARD?? COLON CANCER SCREEN Routine 02/24/2024 8:46 AM EDT Screening for colon cancer HIV 1/2 ANTIGEN/ANTIBODY, FOURTH GENERATION W/RFL Routine 02/02/2024 9:15 AM EDT Annual physical exam Anxiety LIPID PANEL, STANDARD Routine 02/02/2024 9:15 AM EDT Annual physical exam Anxiety HEPATITIS C VIRAL RNA, QUANTITATIVE, REAL-TIME PCR Routine 02/02/2024 9:01 AM EDT Annual physical exam Anxiety from Last 3 Months or Most Recently Relevant to Health Maintenance Results * ThinPrep Imaging Pap and HPV mRNA E6/E7 with Reflex to HPV 16,18/45 (06/18/2024 8:33 AM EDT) HPV 16 RNA [facility] HPV 18/45 RNA [facility] HPV nRNA E6/E7 Not Detected Not Detected [facility] Comment:Methodology: Transcr iption-Mediated AmplificationThis assay detects E6/E7 viral messenger RNA (mRNA) from 14high-risk HPV types (16,18,31,33,35,39,45,51,52,56,58,59,66,68).Cervical sources are required for HPV testing.If a vaginal source from a patient who has had atotal hysterectomy with removal of cervix wassubmitted, please contact the testing laboratoryfor alternative testing options.For additional information, please refer tohttp://education.[employer]/faq/QII479o2(This link if provided for information/educational purposes only.)THIS TEST WAS PERFORMED AT:[facility] [place] [phone] LYN MD SOURCE: SEE NOTE [facility] Comment:Cervix Report Status: [facility] Clinical Information: SEE NOTE [facility] Comment:ROUTINE LMP: SEE NOTE [facility] Comment:06/14/24 Prev. PAP: SEE NOTE [facility] Comment:NONE GIVEN Prev. BX: SEE NOTE [facility] Comment:NONE GIVEN Statement Of Adequacy: SEE NOTE [facility] Comment:Satisfactory for clare luation.Endocervical/transformation zone componentpresent. General Categorization: [facility] Interpretation/Result: SEE NOTE [facility] Comment:Cytology Results: Ne gative for intraepitheliallesion or malignancy. Cytology Comment SEE NOTE [facility] Comment:This Pap test has be en evaluated with computerassisted technology. Professional Athlete: SEE NOTE [facility] Comment:MSM, CT(ASCP)CT scre ening location: [place] [address] Review Professional Athlete: [facility] Pathologist [facility] PAP Infection [facility] See Note SEE NOTE [facility] Comment:EXPLANATORY NOTE:The Pap is a screening test for cervical cancer. It isnot a diagnostic test and is subject to false negativeand false positive results. It is most reliable when asatisfactory sample, regularly obtained, is submittedwith relevant clinical findings and history, and whenthe Pap result is evaluated along with historic andcurrent clinical information. 06/18/2024 8:33 AM EDT 06/18/2024 3:36 PM EDT Narrative [facility] - 06/23/2024 10:22 AM EDT SEE SCANNED RESULTS IN EMRWas previous PAP abnormal? NoClinical Information: routineCollection Date: 06/18/24igh risk HPV with 16 ?? 18 genotyping? YReflex HPV any abnormal diagnosis? YReflex HPV if ASCUS only? NHigh Risk HPV (any diagnosis)? YLMP: 06/14/24Date of previous PAP 2 yrs agoPerformed by: Elissa Montalvo: cervical us Generic External Data Provider LAB PATHOLOGY ORD ERABLES Final Result [facility] [address] [place] [address] [phone] * Cologuard?? colon cancer screening (02/24/2024 8:46 AM EDT) Cologuard Result Negative Negative 02/28/20 10:18 PM EDT [facility] (CLIA #:[id number]) Comment: NEGATIVE TEST RESULT. A negative Cologuard result indicates a low likelihood that a colorectal cancer (CRC) or advanced adenoma (adenomatous polyps with more advanced pre-malignant features) ??is present. The chance that a person with a negative Cologuard test has a colorectal cancer is less than 1 in 1500 (negative predictive value >99.9%) or has an ??advanced adenoma is less than ??5.3% (negative predictive value 94.7%). These data are based on a prospective cross-sectional study of 10,000 individuals at average risk for colorectal cancer who were screened with both Cologuard and colonoscopy. (Bonifacio Hicks et al, N Engl J Med 2014;370(14):1286- 1297) The normal value (reference range) for this assay is negative. COLOGUARD RE-SCREENING RECOMMENDATION: Periodic colorectal cancer screening is an important part of preventive healthcare for asymptomatic individuals at average risk for colorectal cancer. ??Following a negative Cologuard result, the [place] [employer] Society and U.S. Multi-Society Task Force screening guidelines recommend a Cologuard re-screening interval of 3 years. References: [place] [employer] Guideline for Colorectal Cancer Screening: https://www.cancer.org/cancer/ckevb-wvbhzc-lptyvs/xszilnnjc-ibcdrgnpx-dwkpzdb/ac s-rec ommendations.html.; Dale CHRISTENSEN, Samson GUADALUPE, Florencia JacoboK, Colorectal Cancer Screening: Recommendations for Physicians and Patients from the U.S. Multi-Society Task Force on Colorectal Cancer Screening , Am J Gastroenterology 2017; 112:9197-2880. TEST DESCRIPTION: Composite algorithmic analysis of stool DNA-biomarkers with hemoglobin immunoassay. ?? Quantitative values of individual biomarkers are not reportable and are not associated with individual biomarker result reference ranges. Cologuard is intended for colorectal cancer screening of adults of either sex, 45 years or older, who are at average-risk for colorectal cancer (CRC). Cologuard has been approved for use by the U.S. FDA. The performance of Cologuard was established in a cross sectional study of average-risk adults aged 50-84. Cologuard performance in patients ages 45 to 49 years was estimated by sub-group analysis of near-age groups. Colonoscopies performed for a positive result may find as the most clinically significant lesion: colorectal cancer [4.0%], advanced adenoma (including sessile serrated polyps greater than or equal to 1cm diameter) [20%] or non- advanced adenoma [31%]; or no colorectal neoplasia [45%]. These estimates are derived from a prospective cross-sectional screening study of 10,000 individuals at average risk for colorectal cancer who were screened with both Cologuard and colonoscopy. (Bonifacio Hicks et al, N Engl J Med 2014;370(14):1848-4907.) Cologuard may produce a false negative or false positive result (no colorectal cancer or precancerous polyp present at colonoscopy follow up). A negative Cologuard test result does not guarantee the absence of CRC or advanced adenoma (pre-cancer). The current Cologuard screening interval is every 3 years. ([place] [employer] Society and U.S. Multi-Society Task Force). Cologuard performance data in a 10,000 patient pivotal study using colonoscopy as the reference method can be accessed at the following location: www.[employer]/results. Additional description of the Cologuard test process, warnings and precautions can be found at www.LiquiGlideoguard.com. Stool specimen (specimen) 02/24/2024 8:46 AM EDT 02/25/2024 1:52 PM EDT us Jason Salas MD LAB MOLECULAR DIAGNOSTICS O RDERABLES Final Result [facility] (CLIA #:[id number]) [place] [address], * HIV-1/2 Antigen and Antibodies, Fourth Generation, with Reflexes (02/02/2024 9:15 AM EDT) HIV AB/AG Nonreactive Nonreactive [facility] Comment:HIV-1 p24 Ag and/or HIV-1/HIV-2 Ab not detected.A test result that is nonreactive does not exclude thepossibility of exposure to or infection with HIV-1 and/orHIV-2. Nonreactive results in this assay for individualswith prior exposure to HIV-1 and/or HIV-2 may be due toantigen and antibody levels that are below the limit ofdetection of this assay.The [employer] Alinity HIV Ag/Ab Combo assay result andsupplemental assay results should be interpreted inconjunction with the patient's clinical presentation,history and other laboratory results. If the results areinconsistent with clinical evidence, additional testing issuggested to confirm the result. Blood Venous blood specimen / Unknown 02/02/2024 9:15 AM EDT 02/02/2024 2:49 PM EDT us Jason Salas MD LAB BLOOD ORDERABLES Final Result [facility] [address] [place] [phone] * (ABNORMAL) Lipid Panel, Standard (02/02/2024 9:15 AM EDT) Triglycerides 118 <150 mg/dL [facility] Comment:Desirable Triglyceri de: less than 150 mg/dLBorderline High Triglyceride 150-199 mg/dLHigh Triglyceride: 200-499 mg/dLVery High Triglyceride: greater than or equal to 5OO mg/dL Cholesterol 199 <200 mg/dL [facility] Comment:Desirable Cholestero l: less than 200 mg/dLBorderline High Cholesterol: 200-239 mg/dLHigh Cholesterol: greater than 239 mg/dL LDL Cholesterol Calculated 127(H) <100 mg/dL [facility] Comment:Desirable LDL: less than 100 mg/dLNear Optimal/Above Optimal LDL: 110- 129 mg/dLBorderline High LDL: 130-159 mg/dLHigh LDL: 160-189 mg/dLVery High LDL: greater than or equal to 190 mg/dL HDL Cholesterol 49 >40 mg/dL [facility] Comment:Desirable HDL: great er than 40 mg/dL Note: This HDL assay may give artificially low results in patients with liver disease. Blood Venous blood specimen / Unknown 02/02/2024 9:15 AM EDT 02/02/2024 2:49 PM EDT us Jason Salas MD LAB BLOOD ORDERABLES Final Result Performing Organization Address [facility] Co de Phone Number [facility] [address] [place] [phone] * Hepatitis C Viral RNA, Quantitative, Real-Time PCR (02/02/2024 9:01 AM EDT) Hepatitis C Viral Load <15 NOT DETECTED NOT DETECTED IU/mL [facility] HCV Log PCR <1.18 NOT DETECTED NOT DETECTED Log IU/mL [facility] Comment:For more information on this test, go to:http://education.[employer]/faq/NQH29a8(This link is being provided for informational/educational purposes only.)THIS TEST WAS PERFORMED AT:[facility] [place] [phone] LYN MD Blood Venous blood specimen / Unknown 02/02/2024 9:01 AM EDT 02/02/2024 2:49 PM EDT us Jason Salas MD LAB BLOOD ORDERABLES Final Result Performing Organization Address [facility] Co de Phone Number [facility] [address] [place] [phone] from Last 3 Months or Most Recently Relevant to Health Maintenance Insurance [employer] Care Teams Vibratory Pile Driver Relationship Specialty Start Date End Date Jason Salas MD [address] [place] [address] PCP - General Internal Medicine 02/17/18
--- OUTSIDE RECORDS SUMMARY | 2024-12-17 13:47 | XMS_ITS | Encounter Summary ---
Author Organization [employer] Address [address] [facility] [address] [place] [address] Care Team Providers Care Parole Officer Name Role Phone Jason Salas MD Primary Care Provider [phone] Encounter Details Date Type Department Care Team ([facility] st Contact Info) Description 02/02/2024 Orders Only [facility] MED & PEDS [address] [place], [place] [phone] Jason Salas MD [address] [place], [place] [phone] Microcytic anemia (Primary Dx); Anxiety Social History Tobacco Use Types Packs/Day Years Used Date Smoking Tobacco: Never Smokeless Tobacco: Never Depression Answer Date Recorded Patient Health Questionnaire-9 Score 11 01/15/2024 Patient Health Questionnaire-9 Score 11 01/15/2024 Last PHQ-9: Questionnaire Data Not on file 0 01/15/2024 Housing Stability Answer Date Recorded What is [...] Answer Date Recorded Patient Health Questionnaire-2 Score 2 01/15/2024 Comments Unknown Sex and Gender Information Value Date Recorded Sex Assigned at Female 07/01/2022 10:34 AM EDT Legal Sex Female 10:34 AM EDT Gender Identity Female 01/16/2024 9:12 AM EDT Sexual Orientation Straight 01/16/2024 9: 12 AM EDT documented as of this encounter Plan of Treatment Upcoming Encounters Date Type Department Care Team ([facility] st Contact Info) Description 01/19/2025 10:00 AM EDT Office Visit [facility] MED & PEDS [address] [place] [address] Jason Salas MD [address] [place] [address] Scheduled Orders Name Type Priority Associated Diagnoses Orde r Schedule CBC auto differential Lab Routine Microcytic anemia Expected: 03/03/2024 (Approximate), Expires: 02/01/2025 documented as of this encounter Visit Diagnoses Diagnosis Microcytic anemia- Primary Unspecified iron deficiency anemia Anxiety Anxiety state, unspecified documented in this encounter Additional Health Concerns Assessment Noted Time PHQ-9 Depression Total Score: 11 024 2:13 PM EDT documented as of this encounter Care Teams Parole Officer Relationship Specialty Start Date End Date Jason Salas MD [address] [place] [address] PCP - General Internal Medicine 02/17/18 documented as of this encounter
== END 2024-12-17 13:21 | disposition home or self-care (01) ==
LOC: HO.US 13:20
PROVIDERS: PCP Internal Medicine; Visit Provider Advanced Practice Midwife
DX: D21.9 Benign neoplasm of connective and other soft tissue, unspecified (principal)
CPT/HCPCS: 76830; 76856

== ENCOUNTER → 2024-12-17 13:21 | Outpatient (BNV) | payer MEDICAID, SELFPAY | PROVIDERS: PCP Internal Medicine; Visit Provider Radiology Diagnostic Radiology | DX: D25.9 Leiomyoma of uterus, unspecified (principal) | CPT/HCPCS: 76830; 76856 ==

== ENCOUNTER 2025-01-26 15:04 | Outpatient (AMB) | payer MEDICAID, SELFPAY ==
--- NOTE | 2025-01-26 15:08 | A.OFFVIS_ITS ---
Intake Visit Reasons: US follow up Internal Medicine Hospitalist Required: Yes Internal Medicine Hospitalist Language: Artist Representative Name: Carli [id number] [id number] Propulsion Engineer: Propulsion Engineer Present Allergies No Known Allergies Allergy (Verified 01/26/25 15:14) Is last menstrual period known: Yes Last menstrual period: 01/20/25 HPI Comments Details: Patient is here today for a follow up pelvic ultrasound. History of multiple fibroids. Had a myomectomy at [facility] approximately 4 years ago, records have not arrived. She reports pelvic pressure, and mild cramping when she has her cycle. No heavy bleeding. No difficulties with urination or defecation. [facility] Medical History Fibroid History of uterine fibroid Hx of sinusitis Lipoma of right axilla Asthma Surgical History History of myomectomy History of removal of ovarian cyst H/O section Family History Mother HTN (hypertension) Father Diabetes Heart attack Social History Household Members: Family and Children Are you a primary rn intensive care unit to a significant other at home: No Do you presently have visiting nurse or other home services: No Patient Tobacco Use Status: Never used Tobacco service: No Current occupational status: unemployed Female Reproductive History Menstrual Date of last menstrual period: 01/20/25 Review of Systems Const All systems reviewed & are unremarkable except as noted in HPI and below Endo Reports no additional complaints Physical Exam Const General: cooperative, healthy appearing and no acute distress Psych Appearance: well kempt Attitude: cooperative Thought process: Normal thought process present Results Reviewed Results Reviewed: [address] [address] Ultrasound Report Signed Patient: Haley Mckeon MR#: [id number] : 1975 Acct:[id number] Age/Sex: 49 / F ADM Date: 12/17/24 Loc: HO.US Attending Dr: Elissa De La Rosa CNM Ordering Physician: Elissa De La Rosa CNM Date of Service: 12/17/24 Procedure(s): US pelvic and transvaginal Accession Number(s): [id number] cc: Jason Salas MD; Elissa De La Rosa CNM~ 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 TECHNIQUE: Transabdominal and endovaginal real-time 2D good-scale ultrasound was performed. FINDINGS: Uterus: The uterus is enlarged, measuring 12.1 x 7.0 x 7.3 cm. Myometrium has a normal echotexture. Multiple fibroids are noted including a left uterine body fibroid measuring 3.7 x 2.8 x 2.6 cm (previously 3.1 x 3.9 x 2.7 cm), a right anterior fibroid measuring 1.5 x 1.3 x 1.2 cm (previously 1.4 x 1.7 x 1.3 cm), a left anterior fibroid measuring 4.5 x 3.0 x 4.8 cm (previously 3.4 x 2.5 x 3.9 cm), a right fundal fibroid measuring 4.6 x 4.2 x 4.0 cm (previously 2.6 x 2.3 x 2.5 cm), and a superior fibroid measuring 4.9 x 3.7 x 3.6 cm which was not seen previously. Endometrium: The endometrial stripe measures 11 mm in thickness. There are nabothian cysts in the cervix. Right ovary: The right ovary measures 3.6 x 1.8 x 2.9 cm. The right ovary is normal in size and echotexture. Left ovary: The left ovary measures 3.7 x 1.4 x 2.0 cm. The left ovary is normal in size and echotexture. Pelvic fluid: none. US/US pelvic and transvaginal IMPRESSION: Fibroid uterus as described. Electronically signed by: Hugo Worrell MD 12/17/2024 02:40 PM EDT Dictated By: Hugo Worrell MD Signed By: <Electronically signed by Hugo Worrell MD in OV> 12/17/24 1440 DD/ 1347 TD/TT: 12/17/24 1415 Furnace Hand: Assessment & Plan Assessment & Plan (1) Uterine fibroid: Code(s): D25.9 - Leiomyoma of uterus, unspecified Category: Medical Qualifiers: Uterine leiomyoma location: unspecified location Qualified Code(s): D25.9 - Leiomyoma of uterus, unspecified Plan Counseled re: Leiomyoma: common pelvic neoplasm. Differential diagnosis-may i nclude but not limited to- leiomyosarcoma which is a rare uterine sarcoma 3- 7/100,000, difficult to distinguish from fibroids on ultrasound from uterine sarcoma's. Unlikely any single test will have a highly positive predictive value. Hysterectomy is not recommended for sole purpose of excluding malignant neoplasm. Consult for surgical exploration, medical treatment, other treatments, verses expectant management, pros and cons, risks and benefits. Due to the rapid progression of the fibroid plan MRI for further evaluation, referral to MD for further evaluation if indicated. Report any AUB, or pelvic pressure, bloating, pain changes. The patient expressed understanding and agreement with the plan of care. All of her questions and concerns were addressed to the best of my ability. Follow up in person for MRI results and further plan of care. Request for complete records to be sent over again. This note is constructed using voice recognition software. While every effort has been made to ensure accuracy, retail performance specialist errors may have been included. Orders: Orders MR pelvis wo/w con Today D25.9 - Leiomyoma of uterus, unspecified Coding Level of Care Code Est Pt Level 3 (03661) Diagnoses Uterine leiomyoma, unspecified location D25.9 Uterine leiomyoma location: unspecified location
--- OUTSIDE RECORDS SUMMARY | 2025-01-26 15:48 | XMS_ITS | Encounter Summary ---
Author Organization [employer] Address [address] [facility] 7t [place] [address] Care Team Providers Care Lan Manager Name Role Phone Jason Salas MD Primary Care Provider [phone] Encounter Details Date Type Department Care Team ([facility] st Contact Info) Description 09/07/2024 Orders Only [facility] CHC MED & PEDS [address] [place], [place] [phone] Jason Salas MD [address] [place] [address] Class 1 obesity due to excess calories [...] Care Team (Late st Contact Info) Description 04/21/2025 9:45 AM EDT Office Visit [facility] MED & PEDS [address] [place] [address] Jason Salas MD [address] [place] [address] documented as of this encounter Visit Diagnoses Diagnosis Class 1 obesity due to excess calories without serious comorbidity with body mass index (BMI) of 33.0 to 33.9 in adult- Primary documented in this encounter Additional Health Concerns Assessment Noted Time PHQ-9 Depression Total Score: 4 06/28/20 24 2:46 PM EDT documented as of this encounter Care Teams Lan Manager Relationship Specialty Start Date End Date Jason Salas MD [address] [place] [address] PCP - General Internal Medicine 02/17/18 documented as of this encounter
== END 2025-01-26 15:42 | disposition home or self-care (01) ==
LOC: HO.HWS 15:04
PROVIDERS: PCP Internal Medicine; Visit Provider Advanced Practice Midwife
DX: D25.9 Leiomyoma of uterus, unspecified (principal)
CPT/HCPCS: 99213

== ENCOUNTER → 2025-01-26 15:04 | Outpatient (BNVA) | payer MEDICAID, SELFPAY | PROVIDERS: PCP Internal Medicine; Visit Provider Advanced Practice Midwife | DX: D25.9 Leiomyoma of uterus, unspecified (principal) | CPT/HCPCS: 99212 ==

== ENCOUNTER 2025-02-07 15:52 | Outpatient (REF) | payer MEDICAID, SELFPAY ==
--- NOTE | ~2025-02-07 | MR_ITS ---
EXAMINATION: MR PELVIS WITHOUT THEN WITH IV CONTRAST HISTORY: D25.9 - Leiomyoma of uterus, unspecified. TECHNIQUE: Axial T1, fat-suppressed T1, and fat suppressed T2, and sagittal and coronal T2-weighted MR images of the pelvis were obtained. Subsequently, axial and sagittal fat-suppressed T1-weighted images were obtained after the intravenous administration of 7 mm Gadavist. COMPARISON: Correlation is made with a pelvic ultrasound dated 12/17/2024. FINDINGS: The uterus measures approximately 10.5 x 7.9 x 7.6 cm. Multiple fibroids are identified including an anterior fundal fibroid on the left measuring 3.3 x 3.0 x 2.9 cm, a submucosal fundal fibroid to the right of midline measuring 4.1 x 4.2 x 2.0 cm, a left uterine body fibroid measuring 1.7 x 1.8 x 2.0 cm, a posterior fibroid measuring 3.2 x 3.2 x 2.9 cm, an anterior submucosal fibroid measuring 3.8 x 4.0 x 3.5 cm, a posterior fibroid on the right measuring 1.6 x 1.3 x 1.2 cm, and an 8 mm anterior subserosal fibroid. The junctional zone is not thickened. There are nabothian cysts in the cervix measuring up to 1.4 cm in size. The cervix is otherwise unremarkable. The right ovary measures approximately 3.1 x 1.6 x 1.7 cm and is unremarkable. The left ovary measures approximately 2.1 x 1.6 x 2.0 cm and demonstrates multiple follicles. There is a small amount of free fluid on the left. There is no pelvic lymphadenopathy. The urinary bladder is partially collapsed. The visualized bones demonstrate normal marrow signal intensity. Incidental note is made of cysts within the liver measuring up to 2.1 cm in size. MR/MR pelvis wo/w con IMPRESSION: Fibroid uterus as described. Electronically signed by: Hugo Worrell MD 02/08/2025 07:20 AM EDT
[2025-02-07] MEDS: gadobutroL 7.5 ML VIAL IVPUSH (16:34)
--- OUTSIDE RECORDS SUMMARY | 2025-02-07 17:37 | XMS_ITS | Encounter Summary ---
Author Organization [employer] Address [address] [facility] 7[address] [place] [address] Care Team Providers Care Home Care And Home Health Aides Teacher Name Role Phone Jason Salas MD Primary Care Provider [phone] Encounter Details Date Type Department Care Team ([facility] st Contact Info) Description 09/07/2024 Orders Only [facility] CHC MED & PEDS [address] [place], [place] [phone] Jason Salas MD [address] [place] [address] Class 1 obesity due to excess calories [...] Description 04/21/2025 9:45 AM EDT Office Visit [facility] MED & PEDS [address] [place] [address] Jason Salas MD [address] [place] [address] documented as of this encounter Visit Diagnoses Diagnosis Class 1 obesity due to excess calories without serious comorbidity with body mass index (BMI) of 33.0 to 33.9 in adult- Primary documented in this encounter Additional Health Concerns Assessment Noted Time PHQ-9 Depression Total Score: 4 06/28/20 24 2:46 PM EDT documented as of this encounter Care Teams Home Care And Home Health Aides Teacher Relationship Specialty Start Date End Date Jason Salas MD [address] [place] [address] PCP - General Internal Medicine 02/17/18 documented as of this encounter
== END 2025-02-07 15:53 | disposition home or self-care (01) ==
LOC: HO.MRI 15:52
PROVIDERS: PCP Internal Medicine; Visit Provider Advanced Practice Midwife
DX: D25.9 Leiomyoma of uterus, unspecified (principal)
CPT/HCPCS: 72197; A9585

== ENCOUNTER → 2025-02-07 15:53 | Outpatient (BNV) | payer MEDICAID, SELFPAY | PROVIDERS: PCP Internal Medicine; Visit Provider Radiology Diagnostic Radiology | DX: D25.9 Leiomyoma of uterus, unspecified (principal) | CPT/HCPCS: 72197 ==

== ENCOUNTER 2025-02-08 08:23 | Outpatient (REF) | payer MEDICAID, SELFPAY ==
--- OUTSIDE RECORDS SUMMARY | 2025-02-08 08:35 | XMS_ITS | Encounter Summary ---
Author Organization [employer] Address [address] [facility] 7t [place] [address] Care Team Providers Care Rice Farmer Name Role Phone Jason Salas MD Primary Care Provider [phone] Encounter Details Date Type Department Care Team ([facility] st Contact Info) Description 09/07/2024 Orders Only [facility] CHC MED & PEDS [address] [place], [place] [phone] Jason Salas MD [address] [place] [address] Class 1 obesity due to excess calories [...] Description 04/21/2025 9:45 AM EDT Office Visit [facility] MED & PEDS [address] [place] [address] Jason Salas MD [address] [place] [address] documented as of this encounter Visit Diagnoses Diagnosis Class 1 obesity due to excess calories without serious comorbidity with body mass index (BMI) of 33.0 to 33.9 in adult- Primary documented in this encounter Additional Health Concerns Assessment Noted Time PHQ-9 Depression Total Score: 4 06/28/20 24 2:46 PM EDT documented as of this encounter Care Teams Rice Farmer Relationship Specialty Start Date End Date Jason Salas MD [address] [place] [address] PCP - General Internal Medicine 02/17/18 documented as of this encounter
== END 2025-02-08 08:24 | disposition home or self-care (01) ==
LOC: HO.MAMMO 08:23
PROVIDERS: PCP Internal Medicine; Visit Provider Internal Medicine
DX: Z12.31 Encounter for screening mammogram for malignant neoplasm of breast (principal)
CPT/HCPCS: 77063; 77067

== ENCOUNTER → 2025-02-08 08:30 | Outpatient (BNV) | payer MEDICAID, SELFPAY | PROVIDERS: PCP Internal Medicine; Visit Provider Internal Medicine | DX: Z12.31 Encounter for screening mammogram for malignant neoplasm of breast (principal) | CPT/HCPCS: 77063; 77067 ==

== ENCOUNTER 2025-02-17 10:01 | Outpatient (AMB) | payer MEDICAID, SELFPAY ==
--- NOTE | 2025-02-17 10:03 | A.OFFVIS_ITS ---
Intake Visit Reasons: MRI follow up Printing Worker Supervisor Required: Yes Printing Worker Supervisor Language: Manager Animal Services: Printing Worker Supervisor Present Printing Worker Supervisor Name: Bertha Information Interpreted: non-clinical & clinical Fire Hydrant Mechanic: Fire Hydrant Mechanic Present Allergies No Known Allergies Allergy (Verified 01/26/25 15:14) Is last menstrual period known: Yes HPI Comments Details: Patient is here today for a follow up MRI results. History of multiple fibroids. She reports pelvic pressure, menses are regular with heavy bleeding 2/3 days. History of myomectomy in 2020 at [facility], in hopes of , she does not want a future at this time. [facility] Medical History (Updated 01/26/25 @ 15:36 by Elissa De La Rosa CNM) Uterine fibroid Fibroid History of uterine fibroid Hx of sinusitis Lipoma of right axilla Asthma Surgical History History of myomectomy History of removal of ovarian cyst H/O section Family History Mother HTN (hypertension) Father Diabetes Heart attack Social History Household Members: Family and Children Are you a primary lead care manager to a significant other at home: No Do you presently have visiting nurse or other home services: No Patient Tobacco Use Status: Never used Tobacco service: No Current occupational status: unemployed Review of Systems Const All systems reviewed & are unremarkable except as noted in HPI and below Endo Reports no additional complaints Physical Exam Const General: cooperative, healthy appearing and no acute distress Psych Appearance: well kempt Attitude: cooperative Thought process: Normal thought process present Results Reviewed Results Reviewed: [address] [address] Magnetic Resonance Report Signed Patient: Haley Mckeon MR#: [id number] : 1975 Acct:[id number] Age/Sex: 49 / F ADM Date: 02/07/25 Loc: HO.MRI Attending Dr: Elissa De La Rosa CNM Ordering Physician: Elissa De La Rosa CNM Date of Service: 02/07/25 Procedure(s): MR pelvis wo/w con Accession Number(s): [id number] cc: Jason Salas MD; Elissa De La Rosa~ EXAMINATION: MR PELVIS WITHOUT THEN WITH IV CONTRAST HISTORY: D25.9 - Leiomyoma of uterus, unspecified. TECHNIQUE: Axial T1, fat-suppressed T1, and fat suppressed T2, and sagittal and coronal T2-weighted MR images of the pelvis were obtained. Subsequently, axial and sagittal fat-suppressed T1-weighted images were obtained after the intravenous administration of 7 mm Gadavist. COMPARISON: Correlation is made with a pelvic ultrasound dated 12/17/2024. FINDINGS: The uterus measures approximately 10.5 x 7.9 x 7.6 cm. Multiple fibroids are identified including an anterior fundal fibroid on the left measuring 3.3 x 3.0 x 2.9 cm, a submucosal fundal fibroid to the right of midline measuring 4.1 x 4.2 x 2.0 cm, a left uterine body fibroid measuring 1.7 x 1.8 x 2.0 cm, a posterior fibroid measuring 3.2 x 3.2 x 2.9 cm, an anterior submucosal fibroid measuring 3.8 x 4.0 x 3.5 cm, a posterior fibroid on the right measuring 1.6 x 1.3 x 1.2 cm, and an 8 mm anterior subserosal fibroid. The junctional zone is not thickened. There are nabothian cysts in the cervix measuring up to 1.4 cm in size. The cervix is otherwise unremarkable. The right ovary measures approximately 3.1 x 1.6 x 1.7 cm and is unremarkable. The left ovary measures approximately 2.1 x 1.6 x 2.0 cm and demonstrates multiple follicles. There is a small amount of free fluid on the left. There is no pelvic lymphadenopathy. The urinary bladder is partially collapsed. The visualized bones demonstrate normal marrow signal intensity. Incidental note is made of cysts within the liver measuring up to 2.1 cm in size. MR/MR pelvis wo/w con IMPRESSION: Fibroid uterus as described. Electronically signed by: Hugo Worrell MD 02/08/2025 07:20 AM EDT Dictated By: Hugo Worrell MD Signed By: <Electronically signed by Hugo Worrell MD in OV> 02/08/25 0720 DD/ 1614 TD/TT: 02/07/25 1634 Air Quality Consultant: Assessment & Plan Assessment & Plan (1) Uterine fibroid: Code(s): D25.9 - Leiomyoma of uterus, unspecified Category: Medical Qualifiers: Uterine leiomyoma location: unspecified location Qualified Code(s): D25.9 - Leiomyoma of uterus, unspecified Plan: Counseled re: Leiomyoma: common pelvic neoplasm. Differential diagnosis-may include but not limited to- leiomyosarcoma which is a rare uterine sarcoma 3- 7/100,000, difficult to distinguish from fibroids on ultrasound from uterine sarcoma's. Unlikely any single test will have a highly positive predictive value. Hysterectomy is not recommended for sole purpose of excluding malignant neoplasm. Consult for surgical exploration, medical treatment, other treatments, verses expectant management, pros and cons, risks and benefits. Expectant management follow up in 6 months, then yearly for stability. Desires referral for consultation for all options at [facility] including surgical, await follow up ultrasound based on decision making while at [facility] under their care. Referral placed today. Advised to monitor her cycles and report any heavy prolonged or closely spaced cycles. Informed of incidental findings of liver cyst patient inform needs to see her primary care for follow up, she reports she has a follow up within the next 2 months. Copy of MRI results to be faxed her primary care office today. Annual exam scheduled November 2025. The patient expressed understanding and agreement with the plan of care. All of her questions and concerns were addressed to the best of my ability. This note is constructed using voice recognition software. While every effort has been made to ensure accuracy, timber poisoner errors may have been included. (2) Pelvic pressure in female: Code(s): R10.2 - Pelvic and perineal pain Plan: As noted above follow up with referral provider. (3) Heavy menses: Code(s): N92.0 - Excessive and frequent menstruation with regular cycle Qualifiers: Menorrhagia type: with regular cycle Qualified Code(s): N92.0 - Excessive and frequent menstruation with regular cycle Plan: Monitor cycles report any abnormal patterns. Plan This note is constructed using voice recognition software. While every effort has been made to ensure accuracy, timber poisoner errors may have been included. Total time I personally spent on visit and management today: ?30 minutes. Time spent included review of pertinent office notes in the electronic health record; review of laboratory and imaging results; review of personal family medical history; performing physical exam; discussing diagnosis and plan of care with the patient; documenting the encounter in the EMR. Orders: Referrals JOURNEYMAN PAINTER Referral D25.9 - Leiomyoma of uterus, unspecified, N92.0 - Excessive and frequent menstruation with regular cycle, R10.2 - Pelvic and perineal pain Coding Level of Care Code Est Pt Level 3 (04066) Diagnoses Uterine leiomyoma, unspecified location D25.9 Uterine leiomyoma location: unspecified location Pelvic pressure in female R10.2 Menorrhagia with regular cycle N92.0 Menorrhagia type: with regular cycle
--- OUTSIDE RECORDS SUMMARY | 2025-02-17 11:11 | XMS_ITS | Encounter Summary ---
Author Organization [employer] Address [address] [facility] 7t [place] [address] Care Team Providers Care Radial Drill Operator Name Role Phone Jason Salas MD Primary Care Provider [phone] Encounter Details Date Type Department Care Team ([facility] st Contact Info) Description 09/07/2024 Orders Only [facility] CHC MED & PEDS [address] [place], [place] [phone] Jason Salas MD [address] [place] [address] Class 1 obesity due to excess calories [...] Description 04/21/2025 9:45 AM EDT Office Visit [facility] MED & PEDS [address] [place] [address] Jason Salas MD [address] [place] [address] documented as of this encounter Visit Diagnoses Diagnosis Class 1 obesity due to excess calories without serious comorbidity with body mass index (BMI) of 33.0 to 33.9 in adult- Primary documented in this encounter Additional Health Concerns Assessment Noted Time PHQ-9 Depression Total Score: 4 06/28/20 24 2:46 PM EDT documented as of this encounter Care Teams Radial Drill Operator Relationship Specialty Start Date End Date Jason Salas MD [address] [place] [address] PCP - General Internal Medicine 02/17/18 documented as of this encounter
== END 2025-02-17 11:23 | disposition home or self-care (01) ==
LOC: HO.HWS 10:01
PROVIDERS: PCP Internal Medicine; Visit Provider Advanced Practice Midwife
DX: D25.9 Leiomyoma of uterus, unspecified (principal); R10.2 Pelvic and perineal pain; N92.0 Excessive and frequent menstruation with regular cycle
CPT/HCPCS: 99213

== ENCOUNTER → 2025-02-17 10:01 | Outpatient (BNVA) | payer MEDICAID, SELFPAY | PROVIDERS: PCP Internal Medicine; Visit Provider Advanced Practice Midwife | DX: R10.2 Pelvic and perineal pain (principal); D25.9 Leiomyoma of uterus, unspecified; N92.0 Excessive and frequent menstruation with regular cycle | CPT/HCPCS: 99212 ==

== ENCOUNTER 2025-02-25 10:54 | Outpatient (REF) | payer MEDICAID, SELFPAY ==
--- OUTSIDE RECORDS SUMMARY | 2025-02-25 12:02 | XMS_ITS | Encounter Summary ---
Author Organization [employer] Address [address] [facility] [address] [place] [address] Care Team Providers Care Putty Patcher Name Role Phone Jason Salas MD Primary Care Provider [phone] Encounter Details Date Type Department Care Team ([facility] st Contact Info) Description 09/07/2024 Orders Only [facility] CHC MED & PEDS [address] [place], [place] [phone] Jason Salas MD [address] [place] [address] Class 1 obesity due to excess calories [...] Description 04/21/2025 9:45 AM EDT Office Visit [facility] MED & PEDS [address] [place] [address] Jason Salas MD [address] [place] [address] documented as of this encounter Visit Diagnoses Diagnosis Class 1 obesity due to excess calories without serious comorbidity with body mass index (BMI) of 33.0 to 33.9 in adult- Primary documented in this encounter Additional Health Concerns Assessment Noted Time PHQ-9 Depression Total Score: 4 06/28/20 24 2:46 PM EDT documented as of this encounter Care Teams Putty Patcher Relationship Specialty Start Date End Date Jason Salas MD [address] [place] [address] PCP - General Internal Medicine 02/17/18 documented as of this encounter
[2025-02-25 14:09] LABS: MANUAL DIFF FLAG NO
[2025-02-25 14:19] LABS: Basophils Percent Auto 0.6 % (0-2); Eosinophils Absolute Auto 0.3 X10*3/uL (0.0-0.4); Eosinophils Percent Auto 5.1 % (0-4); Hematocrit 38.5 % (37.0-47.0); Hemoglobin 12.4 g/dl (12.0-16.0); Imm Gran Abs Auto 0.01 X10*3/uL (0.00-0.03); Imm Gran Pct Auto 0.2 % (0.0-0.4); Lymphocytes Absolute Auto 1.6 X10*3/uL (1.2-4.9); Lymphocytes Percent Auto 30.1 % (20-40); Mean Corpuscular HGB Conc 32.2 g/dl (31.0-35.0); Mean Corpuscular Hemoglobin 28.4 pg (27.0-33.0); Mean Corpuscular Volume 88.3 fL (80.0-98.0); Mean Platelet Volume 10.3 fL (9.4-12.3); Monocytes Absolute Auto 0.4 X10*3/uL (0.1-1.2); Monocytes Percent Auto 7.7 % (2-11); Neutrophils Percent Auto 56.3 % (45-73); Platelet Count 318 X10*3/uL (160-400); Red Blood Count 4.36 X10*6/uL (4.20-5.50); Red Cell Distribution Width 13.6 % (11.0-16.0); White Blood Count 5.3 X10*3/uL (4.8-10.8)
[2025-02-25 14:30] LABS: Alanine Aminotransferase 16 U/L (0-31); Albumin Level 4.5 g/dL (3.5-5.0); Alkaline Phosphatase 94 U/L (39-117); Anion Gap 13 (12-20); Aspartate Amino Transferase 25 U/L (5-31); Bilirubin Total 0.4 mg/dL (0.0-1.0); Blood Urea Nitrogen 10 mg/dL (9-16); Calcium 9.5 mg/dL (8.4-10.2); Carbon Dioxide 24 mmol/L (22-29); Chloride 105 mmol/L (96-108); Cholesterol 173 mg/dL (<200); Estimated Glomerular Filt Rate > 60; Glucose Random 92 mg/dL (60-115); HDL Cholesterol 44 mg/dL (>40); LDL Cholesterol Calculated 107 mg/dL (<100); Potassium 4.2 mmol/L (3.3-5.1); Sodium 138 mmol/L (135-145); Total Protein 7.9 g/dL (6.5-8.0); Triglycerides 110 mg/dL (<150)
== END 2025-02-25 10:55 | disposition home or self-care (01) ==
LOC: HO.CHCLDS 10:54
PROVIDERS: Visit Provider Internal Medicine
DX: D64.9 Anemia, unspecified (principal); E66.811 Obesity, class 1; E66.09 Other obesity due to excess calories; Z68.30 Body mass index [BMI] 30.0-30.9, adult
CPT/HCPCS: 36415; 80053; 80061; 85025